=== PATIENT | female | born 1995 | race Hispanic/Latino ===

== ENCOUNTER 2018-01-26 18:16 | Emergency (ER) | payer SELFPAY ==
--- NOTE | 2018-01-26 18:47 | RAD ---
LEFT ANKLE THREE VIEWS: 01/26/18 HISTORY: Ankle injury. There is soft tissue swelling around the ankle. No joint effusion or fracture. IMPRESSION: No evidence of fracture. POS: TR
[2018-01-26] MEDS ORDERED: Ketorolac Tromethamine 30 MG/ML VIAL ONE (19:24)
== END 2018-01-26 19:47 | disposition home or self-care (01) ==
LOC: ERS 18:16
DX: S93.402A Sprain of unspecified ligament of left ankle, initial encounter (principal); S90.02XA Contusion of left ankle, initial encounter; V87.8XXA Person injured in other specified noncollision transport accidents involving motor vehicle (traffic), initial encounter
CPT/HCPCS: 96372; J1885